=== PATIENT | male | born 1985 | race Caucasian/White ===

== ENCOUNTER 2018-03-26 21:07 | Emergency (ER) | payer OTHER ==
[~2018-03-26] VITALS: Ht 185.4 cm; Wt 120.7 kg
[2018-03-26 21:44] VITALS: Ht 185.4 cm; Wt 120.7 kg
[2018-03-26 22:42] LABS: BASOPHIL % 0.7 % (0-2); PLATELET COUNT 303 x10^3mcL (130-400); RED CELL DISTRIBUTION WIDTH 13.4 % (11.5-14.5)
[2018-03-26 22:53] LABS: CALCIUM 9.5 mg/dL (8.5-10.1); CARBON DIOXIDE 28.4 mmol/L (21-32); CHLORIDE SERUM 103 mmol/L (98-107); CREATININE SERUM 1.2 mg/dL (0.7-1.3); GFR1 > 60 mL/min; GLUCOSE SERUM 102 mg/dL (74-106); POTASSIUM SERUM 4.2 mmol/L (3.5-5.1); SODIUM SERUM 140 mmol/L (136-145)
[2018-03-27 00:15] VITALS: BP 136/87
== END 2018-03-27 00:15 | disposition home or self-care (01) ==
LOC: ED 21:07
PROVIDERS: Emergency Medicine
DX: J40 Bronchitis, not specified as acute or chronic (principal); J06.9 Acute upper respiratory infection, unspecified; I10 Essential (primary) hypertension; E78.00 Pure hypercholesterolemia, unspecified; Z88.2 Allergy status to sulfonamides
CPT/HCPCS: 36415; J1885

== ENCOUNTER 2018-04-29 04:32 | Emergency (ER) | payer OTHER ==
[~2018-04-29] VITALS: Ht 188 cm; Wt 123.1 kg
[2018-04-29 04:37] VITALS: Ht 188 cm; Wt 123.1 kg
[2018-04-29 05:53] VITALS: BP 105/76
== END 2018-04-29 05:53 | disposition home or self-care (01) ==
LOC: ED 04:32
DX: J11.1 Influenza due to unidentified influenza virus with other respiratory manifestations (principal); I10 Essential (primary) hypertension; G89.29 Other chronic pain; E78.00 Pure hypercholesterolemia, unspecified; Z87.442 Personal history of urinary calculi; Z88.2 Allergy status to sulfonamides
CPT/HCPCS: 87804; J1885; J7620; Q0092

== ENCOUNTER 2019-04-30 22:41 | Emergency (ER) | payer OTHER ==
[~2019-04-30] VITALS: Ht 188 cm; Wt 114.9 kg
[2019-04-30 22:46] VITALS: Ht 188 cm; Wt 114.9 kg
[2019-04-30 23:36] VITALS: BP 159/102
== END 2019-04-30 23:36 | disposition home or self-care (01) ==
LOC: ED 22:41
DX: S05.01XA Injury of conjunctiva and corneal abrasion without foreign body, right eye, initial encounter (principal); I10 Essential (primary) hypertension; E78.00 Pure hypercholesterolemia, unspecified; Z88.2 Allergy status to sulfonamides; Z87.442 Personal history of urinary calculi; W22.8XXA Striking against or struck by other objects, initial encounter; Y93.89 Activity, other specified; Y92.89 Other specified places as the place of occurrence of the external cause; Y99.8 Other external cause status